=== PATIENT | male | born 1960 | race Hispanic/Latino ===

== ENCOUNTER 2022-03-06 07:49 | Emergency (ER) | payer OTHER, SELFPAY ==
--- NOTE | 2022-03-06 09:33 | ER ---
Nurse's Notes [facility] Name: Jos Tran Age: 61 yrs Sex: Male : 1960 Arrival Date: 03/06/2022 Time: 07:50 Bed 14 Private MD: Diagnosis: Acute pharyngitis, unspecified;Coronavirus infection, unspecified;SARS-associated coronavirus as the cause of diseases classified elsewhere Presentation: 03/06 07:51 Chief complaint: Patient states: he started having a sore throat yesterday when he ap3 drank cold water. Patient states it doesn't really hurt any more, and has no other complaints. Coronavirus screen: Client presents with at least one sign or symptom that may indicate coronavirus-19. Standard/surgical mask placed on the client. Ebola Screen: No symptoms or risks identified at this time. Initial Sepsis Screen: Does the patient meet any 2 criteria? No. Patient's initial sepsis screen is negative. Does the patient have a suspected source of infection? No. Patient's initial sepsis screen is negative. Risk Assessment: Do you want to hurt yourself or someone else? Patient reports no desire to harm self or others. Onset of symptoms was March 05, 2022. 07:51 Method Of Arrival: Ambulatory ap3 07:51 Acuity: SAHIL 4 ap3 Triage Assessment: 07:56 General: Appears in no apparent distress. Behavior is calm, cooperative, appropriate ap3 for age. Pain: Denies pain. EENT: Denies pain at this time. he reports he had pain yesterday when drinking cold water. Neuro: Level of Consciousness is awake, alert, obeys commands, Oriented to person, place, time, situation, Appropriate for age Gait is steady, Speech is normal. Cardiovascular: Patient's skin is warm and dry. Respiratory: Airway is patent Respiratory effort is even, unlabored, Respiratory pattern is regular, symmetrical. Historical: - Allergies: 07:55 No Known Allergies; ap3 - Home Meds: 07:55 None [Active]; ap3 - PMHx: 07:55 None; ap3 - Immunization history:: Client reports receiving the 2nd dose of the Covid vaccine. - Social history:: Smoking status: Patient denies any tobacco usage or history of. Screenin:57 Abuse screen: Denies threats or abuse. Nutritional screening: No deficits noted. ap3 Tuberculosis screening: No symptoms or risk factors identified. Fall Risk None identified. Assessment: 08:24 General: Appears in no apparent distress. comfortable, Behavior is calm, cooperative, jd3 appropriate for age, Reports feeling lower throat aching yesterday evening. Pain: Pain began yesterday. reports no pain today. Neuro: Patterson Agitation-Sedation Scale (RASS): 0 - Alert and Calm Level of Consciousness is awake, alert, obeys commands, Oriented to person, place, time, situation. Cardiovascular: Capillary refill < 3 seconds Patient's skin is warm and dry. Respiratory: Airway is patent Respiratory effort is even, unlabored, Respiratory pattern is regular, symmetrical, Denies cough. GI: No signs and/or symptoms were reported involving the gastrointestinal system. : No signs and/or symptoms were reported regarding the genitourinary system. EENT: Oral mucosa is moist. Throat is clear is pink. Derm: No signs and/or symptoms reported regarding the dermatologic system. Musculoskeletal: No signs and/or symptoms reported regarding the musculoskeletal system. 08:55 Reassessment: Patient appears in no apparent distress at this time. Patient and/or jd3 family updated on plan of care and expected duration. Pain level reassessed. Patient is alert, oriented x 3, equal unlabored respirations, skin warm/dry/pink. awaiting results. 09:45 Reassessment: Patient appears in no apparent distress at this time. Patient and/or jd3 family updated on plan of care and expected duration. Pain level reassessed. Patient is alert, oriented x 3, equal unlabored respirations, skin warm/dry/pink. Vital Signs: 07:51 Pulse 90; Resp 17; Temp 98.6; Pulse Ox 100% ; Weight 83.91 kg; Height 5 ft. 7 in. ap3 (170.18 cm); 07:56 BP 179 / 87; ap3 08:56 BP 171 / 94; Pulse 90; Resp 17 S; Pulse Ox 97% on R/A; jd3 07:51 Body Mass Index 28.97 (83.91 kg, 170.18 cm) ap3 ED Course: 07:50 Patient arrived in ED. as 07:55 Triage completed. ap3 07:57 Arm band placed on right wrist. ap3 07:57 Patient has correct armband on for positive identification. Pulse ox on. NIBP on. ap3 08:01 Jonatan Heart MD is Attending Physician. bella 08:05 Darien Wills, RN is Primary Nurse. jd3 08:23 COVID swab sent to lab. Flu and/or RSV swab sent to lab. Strep swab sent to lab. jd3 09:43 No provider procedures requiring assistance completed. Patient did not have IV access jd3 during this emergency room visit. Administered Medications: 09:37 Drug: Zithromax (azithromycin) 500 mg Route: PO; jd3 09:45 Follow up: Response: Medication administered at discharge. jd3 09:37 Drug: Pepcid (famotidine) 40 mg Route: PO; jd3 09:45 Follow up: Response: Medication administered at discharge. jd3 09:37 Drug: Aspirin Chewable Tablet 162 mg Route: PO; jd3 09:45 Follow up: Response: Medication administered at discharge. jd3 Medication: 08:31 VIS not applicable for this client. jd3 Outcome: 09:33 Discharge ordered by . bella 09:44 Discharged to home ambulatory. jd3 09:44 Condition: stable 09:44 Discharge instructions given to patient, Instructed on discharge instructions, follow up and referral plans. medication usage, Demonstrated understanding of instructions, follow-up care, medications, Prescriptions given X 2. 09:46 Patient left the ED. jd3 Signatures: Jonatan Heart MD MD cha Martinez, Amelia as Davies, Jonathon, RN RN jd3 Carol Best RN RN ap3 Corrections: (The following items were deleted from the chart) 08:29 08:24 Pain: Denies pain. jd3 jd3 08:30 08:24 Neuro: Patterson Agitation-Sedation Scale (RASS): 0 - Alert and Calm Level of jd3 Consciousness is awake, alert, obeys commands, Oriented to person, place, time, situation, jd3
--- NOTE | 2022-03-06 09:33 | EDPHYS ---
Physician Documentation [facility] Name: Jos Tran Age: 61 yrs Sex: Male : 1960 Arrival Date: 03/06/2022 Time: 07:50 Bed 14 Private MD: ANTHONY Physician Jonatan Heart HPI: 03/06 09:11 This 61 yrs old Male presents to ER via Ambulatory with complaints of Sore bella Throat. 09:11 The patient presents with sore throat. The patient describes throat pain as burning, bella raw. Onset: The symptoms/episode began/occurred 1 day(s) ago. Severity of symptoms: At their worst the symptoms were mild, in the emergency department the symptoms are unchanged. Modifying factors: The symptoms are alleviated by nothing, the symptoms are aggravated by nothing. Associated signs and symptoms: The patient has no apparent associated signs or symptoms. The patient has not experienced similar symptoms in the past. Historical: - Allergies: 07:55 No Known Allergies; ap3 - Home Meds: 07:55 None [Active]; ap3 - PMHx: 07:55 None; ap3 - Immunization history:: Client reports receiving the 2nd dose of the Covid vaccine. - Social history:: Smoking status: Patient denies any tobacco usage or history of. ROS: 09:13 Constitutional: Negative for fever, chills, and weight loss, Eyes: Negative for injury, bella pain, redness, and discharge, Neck: Negative for injury, pain, and swelling, Cardiovascular: Negative for chest pain, palpitations, and edema, Respiratory: Negative for shortness of breath, cough, wheezing, and pleuritic chest pain, Abdomen/GI: Negative for abdominal pain, nausea, vomiting, diarrhea, and constipation, Back: Negative for injury and pain, : Negative for injury, bleeding, discharge, and swelling, MS/Extremity: Negative for injury and deformity, Skin: Negative for injury, rash, and discoloration, Neuro: Negative for headache, weakness, numbness, tingling, and seizure, Psych: Negative for depression, anxiety, suicide ideation, homicidal ideation, and hallucinations, Allergy/Immunology: Negative for hives, rash, and allergies, Endocrine: Negative for neck swelling, polydipsia, polyuria, polyphagia, and marked weight changes, Hematologic/Lymphatic: Negative for swollen nodes, abnormal bleeding, and unusual bruising. 09:13 ENT: Positive for sore throat. Exam: 09:13 Constitutional: This is a well developed, well nourished patient who is awake, alert, bella and in no acute distress. Head/Face: Normocephalic, atraumatic. Eyes: Pupils equal round and reactive to light, extra-ocular motions intact. Lids and lashes normal. Conjunctiva and sclera are non-icteric and not injected. Cornea within normal limits. Periorbital areas with no swelling, redness, or edema. Neck: Trachea midline, no thyromegaly or masses palpated, and no cervical lymphadenopathy. Supple, full range of motion without nuchal rigidity, or vertebral point tenderness. No Meningismus. Chest/axilla: Normal chest wall appearance and motion. Nontender with no deformity. No lesions are appreciated. Cardiovascular: Regular rate and rhythm with a normal S1 and S2. No gallops, murmurs, or rubs. Normal PMI, no JVD. No pulse deficits. Respiratory: Lungs have equal breath sounds bilaterally, clear to auscultation and percussion. No rales, rhonchi or wheezes noted. No increased work of breathing, no retractions or nasal flaring. Abdomen/GI: Soft, non-tender, with normal bowel sounds. No distension or tympany. No guarding or rebound. No evidence of tenderness throughout. Back: No spinal tenderness. No costovertebral tenderness. Full range of motion. Male : Normal genitalia with no discharge or lesions. Skin: Warm, dry with normal turgor. Normal color with no rashes, no lesions, and no evidence of cellulitis. MS/ Extremity: Pulses equal, no cyanosis. Neurovascular intact. Full, normal range of motion. Neuro: Awake and alert, GCS 15, oriented to person, place, time, and situation. Cranial nerves II-XII grossly intact. Motor strength 5/5 in all extremities. Sensory grossly intact. Cerebellar exam normal. Normal gait. Psych: Awake, alert, with orientation to person, place and time. Behavior, mood, and affect are within normal limits. 09:13 ENT: Posterior pharynx: erythema, that is mild. Vital Signs: 07:51 Pulse 90; Resp 17; Temp 98.6; Pulse Ox 100% ; Weight 83.91 kg; Height 5 ft. 7 in. ap3 (170.18 cm); 07:56 BP 179 / 87; ap3 08:56 BP 171 / 94; Pulse 90; Resp 17 S; Pulse Ox 97% on R/A; jd3 07:51 Body Mass Index 28.97 (83.91 kg, 170.18 cm) ap3 MDM: 08:01 Patient medically screened. [facility] 09:14 Differential diagnosis: group A strep tonsillitis, influenza, laryngitis, pharyngitis, bella tonsillitis, uvulitis. Data reviewed: vital signs, nurses notes, lab test result(s). Data interpreted: vehicle monitor technician: rate is 90 beats/min, rhythm is regular, Pulse oximetry: on room air is 97 %. Counseling: I had a detailed discussion with the patient and/or guardian regarding: the historical points, exam findings, and any diagnostic results supporting the discharge/admit diagnosis, lab results, the need for outpatient follow up, for definitive care, a family practitioner. 03/06 08:04 Order name: Strep; Complete Time: 09:07 [facility] 03/06 08:04 Order name: SARS-COV-2 RT PCR (Document "Date of Onset" if Symptomatic) [facility] 03/06 08:04 Order name: Influenza Screen (a \\T\\ B); Complete Time: 09:07 [facility] 03/06 08:58 Order name: Throat Culture EDMS Administered Medications: 09:37 Drug: Zithromax (azithromycin) 500 mg Route: PO; jd3 09:45 Follow up: Response: Medication administered at discharge. jd3 09:37 Drug: Pepcid (famotidine) 40 mg Route: PO; jd3 09:45 Follow up: Response: Medication administered at discharge. jd3 09:37 Drug: Aspirin Chewable Tablet 162 mg Route: PO; jd3 09:45 Follow up: Response: Medication administered at discharge. jd3 Disposition Summary: 03/06/22 09:33 Discharge Ordered Location: Home bella Problem: new bella Symptoms: have improved bella Condition: Stable bella Diagnosis - Acute pharyngitis, unspecified bella - Coronavirus infection, unspecified bella - SARS-associated coronavirus as the cause of diseases classified elsewhere bella Followup: bella - With: Private Physician - When: 2 - 3 days - Reason: Recheck today's complaints, Continuance of care, Re-evaluation by your physician Discharge Instructions: - Discharge Summary Sheet bella - Pharyngitis bella - Sore Throat bella - Upper Respiratory Infection, Adult bella - Aspirin and Your Heart bella - COVID-19 [facility] - COVID-19 Frequently Asked Questions [facility] - Things You Can Do to Manage Your COVID-19 Symptoms at Home - [facility] - COVID-19: Quarantine vs. Isolation - [facility] - Prevent the Spread of COVID-19 if You Are Sick - [facility] Forms: - Medication Reconciliation Form [facility] - Thank You Letter [facility] - Antibiotic Education [facility] - Prescription Opioid Use [facility] Prescriptions: - Zithromax Z-Josh 250 mg Oral Tablet - take 1 tablet by ORAL route as directed for 5 days Day 1 - take two (2) tablets [facility] one time. Day 2, 3, 4 , 5 take one (1) tablet once daily.; 6 tablet; Refills: 0, Product Selection Permitted - Pepcid 20 mg Oral Tablet - take 1 tablet by ORAL route every 12 hours for 15 days; 30 tablet; Refills: 0, [facility] Product Selection Permitted Signatures: Dispatcher [employer] Jonatan Ford MD MD cha Davies, Jonathon RN RN jd3 Carol Best RN RN ap3
[2022-03-06] MEDS ORDERED: ASPIRIN 81 MG CHEWABLE TABLET ONE (09:41)
[2022-03-06] MEDS ORDERED: AZITHROMYCIN 250 MG TAB ONE (09:41)
[2022-03-06] MEDS ORDERED: FAMOTIDINE 20 MG TAB ONE (09:42)
[2022-03-06 09:51] VITALS: TEMP 98.6
[2022-03-06 09:54] VITALS: BP 171/94; O2SAT 97
== END 2022-03-06 09:46 | disposition home or self-care (01) ==
LOC: ER 07:49
DX: U07.1 COVID-19 (principal)
CPT/HCPCS: 87070; 87081; 87804; U0003

== ENCOUNTER 2024-08-23 08:41 | Emergency (ER) | payer SELFPAY ==
--- OUTSIDE RECORDS SUMMARY | 2024-08-23 08:43 | XMS REPORT | Continuity of Care Document ---
Author Name Unknown Address [address] [place] [address]. [address] [employer] Address [address] [place] [address] 1 495 [place] [address] Care Team Providers Care Analog Ic Design Architect Name Role Phone Unavailable Unavailable Unavailable Encounters Start Date/Time End Date/Time Encounter Type Admission Type Attending Clinicians Care Facility Care Department Encounter ID Source 2024-08-19 09:44:44 2024-08-19 09:44:44 Outpatient [facility] [id number] Lul Pierre
--- NOTE | 2024-08-23 09:13 | RAD REPORT ---
EXAM: Chest Single View HISTORY: HTN COMPARISON: 09/23/2017 FINDINGS: LUNGS/PLEURA: The lungs are clear. No pleural effusions or pneumothorax. No pulmonary edema. Linear s carring in the right upper lobe. MEDIASTINUM: The mediastinal silhouette is within normal limits. CARDIAC: The cardiac silhouette is within normal limits. UPPER ABDOMEN: No significant abnormality. BONES: No acute fracture. LINES/TUBES/OTHER: N/A IMPRESSION: No evidence of acute cardiopulmonary disease.
[2024-08-23 09:20] LABS: Absolute Basophils 0.1 K/uL (0-0.5); Absolute Eosinophils 0.1 K/uL (0-0.5); Absolute Monocytes 0.6 K/uL (0.1-1.3); Absolute Neutrophil 3.1 K/uL (1.8-8.0); Eosinophils % 2.1 % (0-4.4); Hematocrit 51.4 % (39.6-49.0); Hemoglobin 17.1 g/dL (13.6-17.9); Lymphocytes % 33.8 % (15.3-44.8); MCH 32.7 pg (27.0-35.0); MCHC 33.3 g/dL (32.0-36.0); MCV 98.4 fL (80-100); MPV 9.5 fL (7.6-11.3); Monocytes % 10.8 % (3.3-12.3); Neutrophils % 52.3 % (41.7-73.7); Nucleated Red Blood Cells % 0.1 % (0-0); Platelets 176 thou/uL (152-406); RBC Red Blood Cell Count 5.22 M/uL (4.33-5.43); Red Cell Distribution Width 13.8 % (12.1-15.2)
[2024-08-23 10:01] LABS: Albumin 3.6 g/dL (3.4-5.0); Albumin/Globulin Ratio 0.9 (1.1-1.8); Anion Gap 9.7 mEq/L (5.0-15.0); Bilirubin Direct 0.2 mg/dL (0-0.2); Bilirubin Indirect, Calculated 0.5 mg/dL (0.2-0.8); Bilirubin Total 0.7 mg/dL (0.2-1.0); Globulin 3.8 g/dL (2.3-3.5); Potassium 3.7 mEq/L (3.5-5.1); Protein, Total 7.4 g/dL (6.4-8.2); Troponin High Sensitivity 31.6 pg/mL (<58.9)
--- NOTE | 2024-08-23 10:16 | ER ---
Nurse's Notes [facility] Name: Jos Tran Age: 63 yrs Sex: Male : 1960 Arrival Date: 08/23/2024 Time: 08:41 Bed 2 Private MD: Diagnosis: Essential (primary) hypertension Presentation: 08/23 08:53 Chief complaint: Patient states: Diagnosed with high blood pressure by a clinic two ss weeks ago and given a medication, but the medication is not helping. Pt has no complaints at this time. Coronavirus screen: Client denies travel out of the [place] in the last 14 days. Ebola Screen: Patient denies exposure to infectious person. Patient denies travel to an Ebola-affected area in the 21 days before illness onset. Initial Sepsis Screen: Does the patient meet any 2 criteria? No. Patient's initial sepsis screen is negative. Does the patient have a suspected source of infection? No. Patient's initial sepsis screen is negative. Risk Assessment: Do you want to hurt yourself or someone else? Patient reports no desire to harm self or others. Onset of symptoms is unknown. 08:53 Method Of Arrival: Ambulatory ss 08:53 Acuity: SAHIL 3 ss Historical: - Allergies: 08:56 No Known Allergies; ss - Home Meds: 08:57 lisinopril-hydrochlorothiazide 20-25 mg oral tablet 1 tab daily [Active]; ph - PMHx: 08:56 Hypertensive disorder; ss - PSHx: 08:56 None; ss - Immunization history:: Adult Immunizations unknown. - Infectious Disease History:: Denies. - Social history:: Smoking status: Patient reports use of chewing tobacco. - Family history:: not pertinent. - Hospitalizations: : No recent hospitalization is reported. Screenin:58 [facility] ED Fall Risk Assessment (Adult) History of falling in the last 3 months, ph including since admission No falls in past 3 months (0 pts) Confusion or Disorientation No (0 pts) Intoxicated or Sedated No (0 pts) Impaired Gait No (0 pts) Mobility Assist Device Used No (0 pt) Altered Elimination No (0 pt) Score/Fall Risk Level 0 - 2 = Low Risk Oriented to surroundings, Maintained a safe environment, Hourly rounding (assess needs \T\ fall precautionary measures) done. Abuse screen: Denies threats or abuse. Denies injuries from another. Nutritional screening: No deficits noted. Tuberculosis screening: No symptoms or risk factors identified. Assessment: 08:59 General: Appears in no apparent distress. comfortable, Behavior is calm, cooperative. ph Pain: Denies pain. Neuro: Level of Consciousness is awake, alert, obeys commands, Oriented to person, place, time, situation. Cardiovascular: Capillary refill < 3 seconds in bilateral fingers. Respiratory: Airway is patent Respiratory effort is even, unlabored, Respiratory pattern is regular, symmetrical. Derm: Skin is pink, warm \T\ dry. Vital Signs: 08:53 BP 160 / 85; Pulse 96; Resp 16; Pulse Ox 98% ; Weight 86.18 kg; Height 5 ft. 7 in. ; ss Pain 0/10; 08:57 Temp 97.3; ph 08:58 Temp 97.3(O); ss 09:20 BP 159 / 93; Pulse 80; Resp 18; Pulse Ox 96% on R/A; ph 10:29 BP 127 / 82; Pulse 78; Resp 18; Temp 97.9; Pulse Ox 98% on R/A; ph 08:53 Body Mass Index 29.76 (86.18 kg, 170.18 cm) ss 08:53 Pain Scale: Adult ss ED Course: 08:45 Patient arrived in ED. sj2 08:45 Reggie Escobedo MD is Attending Physician. rn 08:55 Lilibeth Crews, STEPHEN is Primary Nurse. ph 08:56 Triage completed. ss 08:56 Arm band placed on right wrist. ss 08:59 Patient has correct armband on for positive identification. Bed in low position. Call light in reach. Side rails up X 1. Client placed on continuous cardiac and pulse oximetry monitoring. NIBP monitoring applied. groundwater monitoring technician on. 09:09 XRAY Chest (1 view) In Process Unspecified. EDMS 09:10 Initial lab(s) drawn, by me, sent to lab. Inserted saline lock: 22 gauge in right ph antecubital area, using aseptic technique. Blood collected. Flushed with 10 mL NS. 09:17 EKG done, by ED staff, reviewed by Reggie Escobedo MD. ph 09:37 Basic Metabolic Panel Sent. ss 09:37 LFT's Sent. ss 09:37 NT PRO-BNP Sent. ss 09:37 Troponin HS Sent. ss 09:37 Lab(s) recollected, by me, sent to lab. 10:29 No provider procedures requiring assistance completed. IV discontinued, intact, ph bleeding controlled, No redness/swelling at site. Pressure dressing applied. Administered Medications: No medications were administered Medication: 08:59 VIS not applicable for this client. ph Outcome: 10:16 Discharge ordered by MD. rn 10:29 Discharged to home ambulatory, ph 10:29 Condition: good 10:29 Discharge instructions given to patient, Instructed on discharge instructions, follow up and referral plans. medication usage, Demonstrated understanding of instructions, follow-up care, medications, Prescriptions given X 1, 10:30 Patient left the ED. ph Signatures: Dispatcher [employer] EDMS Reggie Escobedo MD MD rn Blanchard, Shelby, RN RN ss Hall, Patricia RN RN Irene Coto sj2 Corrections: (The following items were deleted from the chart) 08:58 08:56 Home Meds: Unknown BP medication; [facility]
--- NOTE | 2024-08-23 10:16 | EDPHYS ---
Physician Documentation [facility] Name: Jos Tran Age: 63 yrs Sex: Male : 1960 Arrival Date: 08/23/2024 Time: 08:41 Bed 2 Private MD: ED Physician Reggie Escobedo HPI: 08/23 08:56 This 63 yrs old Male presents to ER via Ambulatory with complaints of Blood rn Pressure Problem. 08:56 The patient has elevated blood pressure and discovered this during work physical. rn Onset: The symptoms/episode began/occurred 2 week(s) ago. Modifying factors:. Severity of symptoms: At its worst the blood pressure was moderate, in the emergency department the blood pressure is unchanged. The patient has experienced similar episodes in the past. Patient reports told had high blood pressure at work physical 2 weeks ago, given 2 weeks prescription of antihypertensive which she has been taking but ran out last night. Did not take anything this morning. Otherwise feels fine. Denies any focal neurological deficits. No chest pain or shortness of breath. No abdominal pain. No back pain. No swelling.. Historical: - Allergies: 08:56 No Known Allergies; ss - Home Meds: 08:57 lisinopril-hydrochlorothiazide 20-25 mg oral tablet 1 tab daily [Active]; ph - PMHx: 08:56 Hypertensive disorder; ss - PSHx: 08:56 None; ss - Immunization history:: Adult Immunizations unknown. - Infectious Disease History:: Denies. - Social history:: Smoking status: Patient reports use of chewing tobacco. - Family history:: not pertinent. - Hospitalizations: : No recent hospitalization is reported. ROS: 08:56 Constitutional: Negative for fever, chills, and weight loss, Cardiovascular: Negative rn for chest pain, palpitations, and edema, Respiratory: Negative for shortness of breath, cough, wheezing, and pleuritic chest pain, Abdomen/GI: Negative for abdominal pain, nausea, vomiting, diarrhea, and constipation, MS/Extremity: Negative for injury and deformity, Skin: Negative for injury, rash, and discoloration, Neuro: Negative for headache, weakness, numbness, tingling, and seizure, Exam: 08:56 Constitutional: This is a well developed, well nourished patient who is awake, alert, rn and in no acute distress. Head/Face: Normocephalic, atraumatic. Neck: No meningismus Cardiovascular: Regular rate and rhythm. No pulse deficits. Respiratory: No increased work of breathing, no retractions or nasal flaring. Abdomen/GI: Soft, non-tender MS/ Extremity: Pulses equal, no cyanosis. Neurovascular intact. Full, normal range of motion. Equal circumference. Neuro: Awake and alert, GCS 15, oriented to person, place, time, and situation. Cranial nerves II-XII grossly intact. Motor strength 5/5 in all extremities. Sensory grossly intact. Cerebellar exam normal. Normal gait. 09:54 ECG was reviewed by the Attending Physician. rn Vital Signs: 08:53 BP 160 / 85; Pulse 96; Resp 16; Pulse Ox 98% ; Weight 86.18 kg; Height 5 ft. 7 in. ; ss Pain 0/10; 08:57 Temp 97.3; ph 08:58 Temp 97.3(O); ss 09:20 BP 159 / 93; Pulse 80; Resp 18; Pulse Ox 96% on R/A; ph 10:29 BP 127 / 82; Pulse 78; Resp 18; Temp 97.9; Pulse Ox 98% on R/A; ph 08:53 Body Mass Index 29.76 (86.18 kg, 170.18 cm) ss 08:53 Pain Scale: Adult ss MDM: 08:45 Medical Screening Exam initiated rn 10:14 Differential diagnosis: hypertensive crisis, Malignant HTN, asymptomatic hypertension. rn Data reviewed: vital signs, nurses notes, lab test result(s), radiologic studies, plain films, and as a result, I will discharge patient. Independent interpretation of the following test(s) in the Emergency Department EKG: See my EKG interpretation above X-Ray: My interpretation is Chest x-ray images negative for pneumonia or pneumothorax or pulmonary edema per my interpretation.. Counseling: I had a detailed discussion with the patient and/or guardian regarding the historical points, exam findings, and any diagnostic results supporting the discharge/admit diagnosis, lab results, radiology results, the need for outpatient follow up, to return to the emergency department if symptoms worsen or persist or if there are any questions or concerns that arise at home. Special discussion: I have referred the patient to see his PCP for further evaluation of high blood pressure. I discussed with the patient/guardian in detail that at this point there is no indication for admission to the hospital. It is understood, however, that if the symptoms persist or worsen the patient needs to return immediately for re-evaluation. Based on the history and exam findings, there is no indication for further emergent testing or inpatient evaluation. I discussed with the patient/guardian the need to see the primary care provider for further evaluation of the symptoms. 08/23 08:55 Order name: Basic Metabolic Panel; Complete Time: 10:07 rn 08/23 08:55 Order name: CBC with Diff; Complete Time: 09:40 rn 08/23 08:55 Order name: LFT's; Complete Time: 10:07 rn 08/23 08:55 Order name: NT PRO-BNP; Complete Time: 10:07 rn 08/23 08:55 Order name: Troponin HS; Complete Time: 10:07 rn 08/23 08:55 Order name: XRAY Chest (1 view); Complete Time: 09:40 rn 08/23 08:55 Order name: EKG; Complete Time: 08:55 rn 08/23 08:55 Order name: Cardiac monitoring; Complete Time: 09:17 rn 08/23 08:55 Order name: EKG - Nurse/Tech; Complete Time: 09:17 rn 08/23 08:55 Order name: IV Saline Lock; Complete Time: 09:37 rn 08/23 08:55 Order name: Labs collected and sent; Complete Time: 09:37 rn 08/23 08:55 Order name: O2 Per Protocol; Complete Time: 09:17 rn 08/23 08:55 Order name: O2 Sat Monitoring; Complete Time: 09:17 rn 08/23 09:25 Order name: Labs - recollect needed: recollect green top; Complete Time: 09:37 bd EC:54 Rate is 76 beats/min. Rhythm is regular. QRS [place] is Normal. MI interval is normal. QRS rn interval is normal. QT interval is normal. No Q waves. T waves are Normal. No ST changes noted. Clinical impression: Normal ECG. Interpreted by me. Reviewed by me. Administered Medications: No medications were administered Disposition Summary: 08/23/24 10:16 Discharge Ordered Notes: Location: Home rn Problem: an ongoing problem rn Symptoms: have improved rn Condition: Stable rn Diagnosis - Essential (primary) hypertension rn Followup: rn - With: Private Physician - When: As needed - Reason: Recheck today's complaints, Re-evaluation by your physician Discharge Instructions: - Discharge Summary Sheet rn - Hypertension, Adult rn - Heart Disease rn team leader - Fatty Liver Disease rn - How to Take Your Blood Pressure, [id number] rn - Managing Your Hypertension rn Forms: - Medication Reconciliation Form rn - Antibiotic garnisher - Prescription Opioid Use rn - Patient Portal Instructions rn - Leadership Thank You Letter rn - Work release form ph Prescriptions: - Lisinopril 5 mg Oral tablet - take 1 tablet ORAL route once daily; 60 tablet; Refills: 0, Product Selection rn Permitted Signatures: Dispatcher [employer] EDMS Varsha Jones Roman, MD MD rn Blanchard, Shelby, RN RN ss Lilibeth Crews RN RN ph Corrections: (The following items were deleted from the chart) 08:56 08:55 BASIC METABOLIC PANEL+C.LAB.BRZ ordered. EDMS EDMS 08:56 08:55 CBC+H.LAB.BRZ ordered. EDMS EDMS 08:56 08:55 HEPATIC FUNCTION+C.LAB.BRZ ordered. EDMS EDMS 08:56 08:55 PROBNP+C.LAB.BRZ ordered. EDMS EDMS 08:56 08:55 Troponin High Sensitivity+C.LAB.BRZ ordered. EDMS EDMS 08:58 08:56 Home Meds: Unknown BP medication; ph
[2024-08-23 10:57] VITALS: BP 127/82; TEMP 97.9; O2SAT 98
--- NOTE | 2024-08-24 12:00 | EKG ---
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
== END 2024-08-23 10:30 | disposition home or self-care (01) ==
LOC: ER 08:41
DX: I10 Essential (primary) hypertension (principal)
CPT/HCPCS: 36415; 71045; 80048; 80076; 83880; 84484; 85025; 93005; 99284